=== PATIENT | male | born 1970 | race Caucasian/White ===

== ENCOUNTER 2020-06-16 14:45 | Emergency (ER) | payer SELFPAY ==
[2020-06-16] MEDS ORDERED: Bacitracin 1 PK ONE (15:22)
== END 2020-06-16 15:32 | disposition home or self-care (01) ==
LOC: NAV ERS 14:45
DX: S61.011A Laceration without foreign body of right thumb without damage to nail, initial encounter (principal); F17.210 Nicotine dependence, cigarettes, uncomplicated; W45.8XXA Other foreign body or object entering through skin, initial encounter
CPT/HCPCS: 99282